=== PATIENT | female | born 1995 | race Caucasian/White ===

== ENCOUNTER 2017-02-15 20:49 | Emergency (ER) | payer OTHER | END 2017-02-15 21:55 | disposition home or self-care (01) | LOC: ER 20:49 | DX: S93.402A Sprain of unspecified ligament of left ankle, initial encounter (principal); S93.602A Unspecified sprain of left foot, initial encounter; Z88.0 Allergy status to penicillin; X50.1XXA Overexertion from prolonged static or awkward postures, initial encounter; Y92.009 Unspecified place in unspecified non-institutional (private) residence as the place of occurrence of the external cause ==